=== PATIENT | female | born 1995 | race Caucasian/White ===

== ENCOUNTER 2018-11-22 20:13 | Emergency (ER) | payer OTHER ==
[2018-11-23 01:53] LABS: ABSOLUTE LYMPHOCYTES (AUTO) 2.4 10^3/uL (0.5-4.7); ABSOLUTE MONOCYTES (AUTO) 0.7 10^3/uL (0.1-1.4); ABSOLUTE NEUT (AUTO) 6.1 10^3/uL (1.7-8.2); BASOPHILS % (AUTO) 0.4 % (0-2); EOSINOPHILS % (AUTO) 0.4 % (0-6); HEMATOCRIT 34.4 % (36.0-47.0); HEMOGLOBIN 11.7 g/dL (12.0-15.5); LYMPHOCYTES % (AUTO) 26.2 % (13-45); MEAN CORPUSCULAR HEMOGLOBIN 29.4 pg (27.0-33.4); MEAN CORPUSCULAR VOLUME 87 fl (80-97); MONOCYTES % (AUTO) 7.3 % (3-13); PLATELET COUNT 274 10^3/uL (150-450); RED BLOOD COUNT 3.98 10^6/uL (3.72-5.28); RED CELL DISTRIBUTION WIDTH 13.6 % (11.5-14.0); SEGMENTED NEUTROPHILS % (AUTO) 65.7 % (42-78); TOTAL CELLS COUNTED % (AUTO) 100 %; WHITE BLOOD COUNT 9.3 10^3/uL (4.0-10.5)
[2018-11-23 02:04] LABS: ANION GAP 9 (5-19); BLOOD UREA NITROGEN 13 mg/dL (7-20); CARBON DIOXIDE 25 mmol/L (22-30); CHLORIDE 106 mmol/L (98-107); GLUCOSE 95 mg/dL (75-110); SODIUM 139.7 mmol/L (137-145)
[2018-11-23 03:02] VITALS: BP 161/71
--- NOTE | 2018-11-23 03:16 | ER Document Report ---
ED General - General Chief Complaint: Stiff Neck Stated Complaint: NECK PAIN,HEAD PAIN SEVERE Time Seen by Provider: 11/23/18 01:05 Notes: Patient is a 23-year-old female without chronic medical problems who presents with 1 week of sinus congestion, rhinorrhea and cough as well as 24 hours of headache and neck pain. Was seen in urgent care today, referred to the emergency room due to concerns of possible meningitis due to neck stiffness. Patient states that the headache and neck pain started gradually this morning, worsened somewhat throughout the day. Described as a global, throbbing, aching headache. States that she has had similar headaches in the past although this is somewhat more severe than normal. She denies any recorded fever, vomiting, confusion, focal weakness or numbness. She has been treating her symptoms with DayQuil with minimal improvement. Chronic symptoms worsen her symptoms. TRAVEL OUTSIDE OF THE [place] IN LAST 30 DAYS: No - Related Data Allergies/Adverse Reactions: No Known Allergies Allergy (Unverified 11/23/18 03:09) Past Medical History - General Information source: Patient - Social History Smoking Status: Never Smoker Chew tobacco use (# tins/day): No Frequency of alcohol use: None Drug Abuse: None Lives with: Spouse/Significant other Family History: Reviewed & Not Pertinent Patient has suicidal ideation: No Patient has homicidal ideation: No Renal/ Medical History: Denies: Hx Peritoneal Dialysis Past Surgical History: Reports: Hx Breast Surgery - breast augmentation Review of Systems - Review of Systems Notes: Constitutional: Negative for fever. HENT: Positive for sore throat, sinus congestion Eyes: Negative for visual changes. Cardiovascular: Negative for chest pain. Respiratory: Negative for shortness of breath. Positive for cough Gastrointestinal: Negative for abdominal pain, vomiting or diarrhea. Genitourinary: Negative for dysuria. Musculoskeletal: Negative for back pain. Skin: Negative for rash. Neurological: Positive for headache 10 point ROS negative except as marked above and in HPI. Physical Exam - Vital signs Vitals: Temp Pulse Resp BP Pulse Ox 98.1 F 85 21 H 127/76 H 100 11/22/18 20:27 11/22/18 20:27 11/22/18 20:27 11/22/18 20:27 11/22/18 20:27 Interpretation: Normal Notes: PHYSICAL EXAMINATION: GENERAL: Well-appearing, well-nourished and in no acute distress. HEAD: Atraumatic, normocephalic. EYES: Pupils equal round and reactive to light, extraocular movements intact, sclera anicteric, conjunctiva are normal. ENT: nares patent, oropharynx clear without exudates. Moist mucous membranes. NECK: Normal range of motion, supple without lymphadenopathy, no meningismus LUNGS: Breath sounds clear to auscultation bilaterally and equal. No wheezes rales or rhonchi. HEART: Regular rate and rhythm without murmurs ABDOMEN: Soft, nontender, normoactive bowel sounds. No guarding, no rebound. No masses appreciated. EXTREMITIES: Normal range of motion, no pitting or edema. No cyanosis. NEUROLOGICAL: No focal neurological deficits. Moves all extremities spontaneously and on command. PSYCH: Normal mood, normal affect. SKIN: Warm, Dry, normal turgor, no rashes or lesions noted. Course - Re-evaluation Re-evalutation: 11/23/18 03:09 Patient presents with sinus congestion, sore throat and cough for 1 week and a headache and neck pain for approximately 36 hours. Patient was referred from urgent care due to concerns of possible meningitis. On exam the patient is well in appearance, conversing normally, in no distress. Her vitals are within normal limits with a temperature of 98.1, heart rate of 85, blood pressure 127/76. She has no meningismus on exam, full neck range of motion both actively and passively. Labs are unremarkable, normal white blood cell count. I did review with the patient the low probability of an acute bacterial meningitis, mild probability of a viral meningitis. We reviewed the only manner in which this could be definitively excluded is a lumbar puncture. We did review the risks and benefits of this approach particular given the low probability of a bacterial meningitis. The patient did decline this procedure stating that she does not was to risk a post lumbar puncture headache and is willing to accept the low risk of a possible bacterial meningitis. She understands that missing this diagnosis could result in a much more serious outcome including neurologic impairment or even . At this time will discharge with return precautions and follow-up recommendations. Verbal discharge instructions given a the beds brad and opportunity for questions given. Medication warnings reviewed. Patient is in agreement with this plan and has verbalized understanding of return precautions and the need for primary care follow-up in the next 24-72 hours. - Vital Signs Vital signs: Temp Pulse Resp BP Pulse Ox 97.2 F 89 21 H 161/71 H 100 11/23/18 03:02 11/23/18 03:02 11/22/18 20:27 11/23/18 03:02 11/22/18 20:27 - Laboratory Result Diagrams: 11/23/18 01:38 11/23/18 01:38 Laboratory results interpreted by me: 11/23/18 01:38 Hgb 11.7 L Hct 34.4 L Discharge - Discharge Clinical Impression: Viral upper respiratory infection Sinusitis Qualifiers: Sinusitis location: unspecified location Chronicity: acute Recurrence: not specified as recurrent Qualified Code(s): J01.90 - Acute sinusitis, unspecified Headache Qualifiers: Headache type: unspecified Headache chronicity pattern: acute headache Intractability: not intractable Qualified Code(s): R51 - Headache Condition: Good Disposition: HOME, SELF-CARE Additional Instructions: Your symptoms are most likely due to a viral infection it should resolve over the next 7-14 days. You should take [id number] guanfacine per bottle instructions to help thin the mucus. For nasal congestion: I would recommend that you get [id number] oxymetazoline also known is afrin. Use only per bottle instructions and be sure to never use this for more than 3 days if you can develop severe rebound congestion. You may also use tylenol or ibuprofen as needed for aches and thorat discomfort. Please be sure to drink plenty of fluids and get rest. Return to the emergency department you began having worsening headache, confusion, increasing leg pain, difficulty breathing, chest pain, persistent vomiting, or any other symptoms that are concerning to you.
[2018-11-23] MEDS ORDERED: ACETAMINOPHEN 325 MG TABLET PO ONE (03:17)
[2018-11-23] MEDS ORDERED: IBUPROFEN 600 MG TABLET PO ONE (03:17)
== END 2018-11-23 03:24 | disposition home or self-care (01) ==
LOC: ER 20:13
DX: J01.90 Acute sinusitis, unspecified (principal); J06.9 Acute upper respiratory infection, unspecified; J02.9 Acute pharyngitis, unspecified; R51 Headache; R09.81 Nasal congestion; J34.89 Other specified disorders of nose and nasal sinuses; R05 Cough; M54.2 Cervicalgia; M43.6 Torticollis
CPT/HCPCS: 36415; 80048; 83605; 85025; 99283